=== PATIENT | female | born 1960 | race Caucasian/White ===

== ENCOUNTER 2016-10-16 08:13 | Day surgery (SDC) | payer BC ==
[2016-10-12 15:16] VITALS: BMI 24.2
[~2016-10-16 08:13] MED LIST: LACTATED RINGERS 1,000 ML IV SCH; LIDOCAINE 1% 20 ML VIAL (10MG/ML) FOR IV START INTRADERMA PRN
[2016-10-16 08:29] VITALS: RESP 16; TEMP 97.2
[2016-10-16] MEDS ORDERED: MIDAZOLAM 2 MG/2 ML VIAL ONE (08:57)
[2016-10-16] MEDS ORDERED: PROPOFOL 10 MG/ML 20 ML VIAL IV ONE (08:57)
[2016-10-16] MEDS ORDERED: LIDOCAINE 1% INJ 10MG/ML (20 ML MDV) ONE (08:57)
[2016-10-16] MEDS ORDERED: fentaNYL (PF) 50 MCG/ML 2 ML AMP ONE (08:57)
--- NOTE | 2016-10-16 09:11 | P.GSHP ---
History of Present Illness H&P Date: 10/16/16 Chief Complaint: Screening colonoscopy 's is a 56-year-old female who presents today for initial screening colonoscopy. Patient denies a significant GI complaints. - Constitutional Constitutional: Reports as per HPI Past Medical History Past Medical History: Pneumonia History of Any Multi-Drug Resistant Organisms: None Reported Past Surgical History: Breast Surgery, Tonsillectomy Additional Past Surgical History / Comment(s): irving breast lumpectomy Past Anesthesia/Blood Transfusion Reactions: No Reported Reaction Smoking Status: Never smoker - Past Family History Sister(s) Family Medical History: Cancer Additional Family Medical History / Comment(s): breast Medications and Allergies Home Medications Medication Instructions Recorded Confirmed Type ALPRAZolam [Xanax] 0.25 mg PO DAILY 10/12/16 10/16/16 History Ascorbic Acid [Vitamin C] 500 mg PO DAILY 10/12/16 10/16/16 History Cholecalciferol [Vitamin D3] 5,000 unit PO DAILY 10/12/16 10/16/16 History Multivitamins, Thera [Multivitamin 1 tab PO DAILY 10/12/16 10/16/16 History (formulary)] Allergies Allergy/AdvReac Type Severity Reaction Status Date / Time codeine Allergy Unknown Verified 10/16/16 08:28 Childhood Sulfa (Sulfonamide Allergy Nausea & Verified 10/16/16 08:28 Antibiotics) Vomiting Surgical - Exam Vital Signs Temp Pulse Resp BP Pulse Ox 97.2 F L 85 16 122/70 99 10/16/16 08:29 10/16/16 08:29 10/16/16 08:29 10/16/16 08:29 10/16/16 08:29 - General well developed, no distress - Eyes PERRL - ENT normal pinna - Neck no masses - Respiratory normal expansion - Cardiovascular Rhythm: regular - Abdomen Abdomen: soft, non tender Assessment and Plan Plan: We'll perform screening colonoscopy.
--- NOTE | 2016-10-16 09:36 | P.OP ---
Date of Procedure: 10/16/16 Preoperative Diagnosis: Screening colonoscopy Postoperative Diagnosis: normal colon Procedure(s) Performed: Colonoscopy Implants: Anesthesia: MAC Surgeon: Chivo Owen Pathology: none sent Condition: stable Disposition: PACU Indications for Procedure: Operative Findings: Description of Procedure: PROCEDURE: The patient was placed on the endoscopy table in the lateral position. Digital rectal examination was performed which revealed no abnormalities. Flexible colonoscope was then placed in the patient's anus and passed throughout the entire colon. The ileocecal valve was visualized. The cecum, ascending, transverse, descending and sigmoid colon were normal. The rectum was normal as well. There were no masses, polyps or diverticula noted in the entire colon. SUMMARY OF FINDINGS: Normal colonoscopy.
[2016-10-16 09:59] VITALS: BP 102/58; PULSE 70
== END 2016-10-16 10:34 | disposition home or self-care (01) ==
LOC: ORWHC2ENDO 08:13
PROVIDERS: ATTEND Surgery
DX: Z12.11 Encounter for screening for malignant neoplasm of colon (principal); Z79.899 Other long term (current) drug therapy; Z88.5 Allergy status to narcotic agent; Z88.2 Allergy status to sulfonamides
CPT/HCPCS: J2250; J2001; J3010; J2704; G0121